=== PATIENT | female | born 1995 | race Caucasian/White ===

== ENCOUNTER 2018-01-31 05:18 | Emergency (ER) | payer OTHER ==
[~2018-01-31] VITALS: Ht 157.5 cm; Wt 59.0 kg
[2018-01-31 05:25] VITALS: Ht 157.5 cm; Wt 59.0 kg
[2018-01-31 05:51] VITALS: BP 111/65
== END 2018-01-31 05:51 | disposition other institution (70) ==
LOC: ED 05:18
DX: F10.129 Alcohol abuse with intoxication, unspecified (principal); F43.0 Acute stress reaction; Z88.2 Allergy status to sulfonamides